=== PATIENT | male | born 1985 | race Caucasian/White ===

== ENCOUNTER 2021-12-09 18:32 | Emergency (ER) | payer BC, SELFPAY ==
[2021-12-09 18:44] VITALS: BP 125/74; PULSE 100; RESP 16; TEMP 36.9; O2SAT 99; BMI 21.5
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
[2021-12-09] MEDS: LIDOCAINE 2% W/EPI INJ 20 ML INJ (19:34)
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
[2021-12-09] MEDS: BACITRACIN OINT 0.9 GM PCKT 1 APPLIC TOP (20:14)
[2021-12-09 20:26] VITALS: BP 129/72; PULSE 77; O2SAT 100
== END 2021-12-09 20:27 | disposition home or self-care (01) ==
PROVIDERS: Emergency Provider Physician Assistant
DX: S81.012A Laceration without foreign body, left knee, initial encounter (principal); V29.9XXA Motorcycle rider (driver) (passenger) injured in unspecified traffic accident, initial encounter
CPT/HCPCS: 73560; 81003; 99283

== ENCOUNTER 2021-12-17 11:53 | Emergency (ER) | payer BC, SELFPAY ==
[2021-12-17 11:56] VITALS: BP 118/70; PULSE 87; RESP 16; TEMP 36.6; O2SAT 99; BMI 21.5
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
--- NOTE | 2021-12-17 12:33 | PC.NURSE ---
left knee sutures being removed by mechanical design engineer products
== END 2021-12-17 12:52 | disposition home or self-care (01) ==
PROVIDERS: Emergency Provider Registered Nurse
DX: Z48.02 Encounter for removal of sutures (principal); R22.42 Localized swelling, mass and lump, left lower limb
CPT/HCPCS: 87070; 87205; 99281; 99282